=== PATIENT | female | born 1935 | race African-American/Black ===

== ENCOUNTER 2024-06-18 10:35 | Emergency (ER) | payer OTHER ==
[~2024-06-18] VITALS: Ht 162.5 cm; Wt 60.4 kg
[2024-06-18] MEDS ORDERED: MELOXICAM7.5 MG PO (10:47)
[2024-06-18] MEDS ORDERED: AMLODIPINE BESYL5 MG PO (10:47)
[2024-06-18] MEDS ORDERED: diazePAM 10 MG/2 ML SYR IV ONE (11:15)
[2024-06-18] MEDS ORDERED: SODIUM CHLORIDE 0.9% 500 ML IV ONE (11:15)
[2024-06-18] MEDS ORDERED: diazePAM 2 MG TAB PO ONE (11:20)
[2024-06-18] MEDS ORDERED: Meclizine Hydrochloride 25 MG TAB PO ONE (11:20)
[2024-06-18 11:31] LABS: BASO # 0.1 10*3/uL (0.0-0.1); BASO % 0.5 % (0.0-1.0); EOS # 0.2 10*3/uL (0.0-0.4); EOS % 1.2 % (1.0-4.0); HEMATOCRIT 43.4 % (37.0-47.0); MEAN CELL VOLUME 85.1 fl (81.0-99.0); MEAN CORPUSCULAR HGB 27.3 pg (27.0-31.0); MEAN PLATELET VOLUME 9.4 fl (9.6-12.3); MONO # 1.1 10*3/uL (0.1-1.0); MONO % 8.8 % (3.0-9.0); NEUT # 9.7 10*3/uL (2.3-7.9); NEUT % 75.1 % (47.0-73.0); PLATELET COUNT AUTOMATED 372 10*3/uL (130-400); RED CELL DISTRI WIDTH 14.9 % (0-14.5); WHITE BLOOD COUNT 12.9 10*3/uL (4.8-10.8)
[2024-06-18 11:58] LABS: BUN 14 mg/dl (9-23); CHLORIDE 107 mmol/L (98-107); LIPASE 163 U/L (12-53); POTASSIUM 3.7 mmol/L (3.4-5.1)
[2024-06-18 14:37] LABS: BILIRUBIN Negative (Negative); BLOOD Negative (Negative); CLARITY Clear (Clear); COLOR Yellow (Yellow); GLUCOSE Negative (Negative); KETONE Negative (Negative); LEUKO ESTERASE 1+ (Negative); NITRITE Negative (Negative); PH 5.5 (4.5-8.0); SPECIFIC GRAVITY <= 1.005 (1.001-1.030); UROBILINOGEN 0.2 E.U./dl (0.0-1.0)
[2024-06-18 15:26] LABS: BACTERIA 1+; RBC 0-2 rbc/hpf (0-2)
[2024-06-18] MEDS ORDERED: ANTIVERT25 M2 PO (15:33)
[2024-06-18] MEDS ORDERED: CIPRO500 MG PO (15:33)
== END 2024-06-18 16:01 | disposition home or self-care (01) ==
LOC: ED 10:35
PROVIDERS: Internal Medicine
DX: R42 Dizziness and giddiness (principal); N39.0 Urinary tract infection, site not specified; I10 Essential (primary) hypertension; Z79.899 Other long term (current) drug therapy